=== PATIENT | female | born 1960 | race Caucasian/White ===

== ENCOUNTER → 2016-09-23 | Outpatient (CLI) | payer OTHER ==
[~2016-09-23] MED LIST: BENA25TA6 PO; BIOT2500 PO; CETI-14 PO; KRIL1CAP9 PO; MAGN1TAB14 PO; OXYC1TAB63 PO
[2016-09-23 11:59] LABS: APTT (PATIENT) 25.3 SEC (24.3-30.1); PROTHROMBIN TIME - PATIENT 10.5 SEC (9.8-11.6)
[2016-09-23 12:05] LABS: AUTOMATED NEUTROPHIL # 4.2 TH/MM3 (1.8-7.7); BASOPHIL % 0.6 % (0.0-2.0); EOSINOPHIL # 0.3 TH/MM3 (0-0.4); EOSINOPHIL % 5.4 % (0.0-4.0); HEMATOCRIT 41.1 % (35.0-46.0); HEMO FLAGS DIFF FINAL; LYMPHOCYTE # 1.4 TH/MM3 (1.0-4.8); MEAN CELL VOLUME 84.1 FL (80.0-100.0); MEAN CORPUSCULAR HEMOGLOBIN 26.8 PG (27.0-34.0); MEAN CORPUSCULAR HGB CONC 31.8 % (32.0-36.0); MONO % 7.9 % (0.0-8.0); NEUT % 65.1 % (16.0-70.0); PLATELET COUNT 231 TH/MM3 (150-450); RED BLOOD COUNT 4.88 MIL/MM3 (4.00-5.30); RED CELL DISTRIBUTION WIDTH 13.4 % (11.6-17.2); WHITE BLOOD COUNT 6.5 TH/MM3 (4.0-11.0)
[2016-09-23 12:10] LABS: ANION GAP 4 MEQ/L (5-15); AST (GOT) 14 U/L (15-37); BLOOD UREA NITROGEN 22 MG/DL (7-18); CHLORIDE 105 MEQ/L (98-107); GLOMERULAR FILTRATION RATE 78 ML/MIN (>89); GLUCOSE,FASTING 89 MG/DL (74-99); POTASSIUM 4.3 MEQ/L (3.5-5.1); SODIUM (NA) 140 MEQ/L (136-145)
[2016-09-23 12:11] LABS: ALT (GPT) 26 U/L (10-53)
[2016-09-23 12:14] LABS: ALKALINE PHOSPHATASE 71 U/L (45-117); TOTAL BILIRUBIN ADULT 0.4 MG/DL (0.2-1.0)
--- NOTE | 2016-09-23 13:55 | RADRPT ---
EXAM DATE/TIME: 09/23/2016 12:25 [place] COMPARISON: No previous studies available for comparison. INDICATIONS : Evaluate for pneumonia, pneumothorax, or communicable disease. Pre op for abdominal surgery. MEDICAL HISTORY : None. SURGICAL HISTORY : None. ENCOUNTER: Initial ACUITY: 1 day PAIN SCORE: 0/10 LOCATION: chest FINDINGS: PA and lateral views of the chest demonstrate a normal-sized cardiac silhouette. There is no effusion , consolidation, or pneumothorax. The bones and soft tissues demonstrate no acute abnormality. There are degenerative changes of the thoracic spine. CONCLUSION: No acute cardiopulmonary abnormality is identified. Neftaly Rivas MD on September 23, 2016 at 13:50 Board Certified Radiologist. This report was verified electronically.
--- NOTE | 2016-09-24 13:24 | EKG ---
Date Performed: 09/23/2016 Time Performed: 11:33:43 PTAGE: 56 years EKG: Sinus rhythm NORMAL ECG NO PREVIOUS TRACING DOCTOR: Erick Arzola Interpretating Date/Time 09/24/2016 13:22:27
== END ==
LOC: CPRE 10:59
PROVIDERS: ATTEND Obstetrics & Gynecology Gynecologic Oncology
DX: Z01.810 Encounter for preprocedural cardiovascular examination (principal); Z01.811 Encounter for preprocedural respiratory examination; Z01.812 Encounter for preprocedural laboratory examination; C54.1 Malignant neoplasm of endometrium
CPT/HCPCS: 36415; 71020; 80053; 85025; 85610; 85730; 93005

== ENCOUNTER 2016-09-30 08:42 | Observation (INO) | payer OTHER ==
[~2016-09-30] VITALS: Ht 170.2 cm; Wt 75.8 kg
[~2016-09-30 08:42] MED LIST changes: -OXYC1TAB63 PO
[2016-09-30] MEDS ORDERED: LACTATED RINGER'S 1000 ML IV PRN (09:15)
[2016-09-30] MEDS ORDERED: SODIUM CHLORID 0.9% 500 ML IV PRN (09:15)
[2016-09-30] MEDS ORDERED: CHLORHEXIDINE GLUCONATE 2 % 1 PACK (2 CLOTHS) TOPICAL PRN (09:15)
[2016-09-30] MEDS ORDERED: INSULIN HUMAN REGULAR 1,000 UNITS/10 ML VIAL SQ PRN (09:15)
[2016-09-30] MEDS ORDERED: METOPROLOL TARTRATE 25 MG TAB PO PRN (09:15)
[2016-09-30] MEDS ORDERED: POVIDONE IODINE 5% (ANTISEPSIS KIT) 4 APPLICATIONS EACH NARE PRN (09:15)
[2016-09-30 09:24] VITALS: BP 132/56; PULSE 58; RESP 18; TEMP 98.7; O2SAT 100
[2016-09-30] MEDS ORDERED: HEPARIN SODIUM - SQ 10,000 UNITS/ML VIAL SQ ONE (09:30)
[2016-09-30] MEDS ORDERED: ceFAZolin 1,000 MG/NS 100 ML IV SCH ×2 (09:30)
[2016-09-30] MEDS ORDERED: APREPITANT 40 MG CAP ONE (10:44)
[2016-09-30] MEDS ORDERED: ARTIFICIAL TEARS OPTH OINT 3.5 APPLIC/3.5 GM TUBO ONE (11:24)
[2016-09-30] MEDS ORDERED: HYDROmorphone HCL PF 2 MG/ML VIAL ONE (11:24)
[2016-09-30] MEDS ORDERED: MIDAZOLAM HCL 2 MG/2 ML VIAL ONE (11:24)
[2016-09-30] MEDS ORDERED: ACETAMINOPHEN 1000 MG/100 ML VIAL IV ONE (11:24)
[2016-09-30] MEDS ORDERED: fentaNYL CITRATE 250 MCG/5 ML AMP ONE ×2 (11:24→15:24)
[2016-09-30] MEDS ORDERED: DEXAMETHASONE SOD PHOS 4 MG/ML VIAL ONE (11:25)
[2016-09-30] MEDS ORDERED: FAMOTIDINE 20 MG/2 ML VIAL ONE (11:25)
[2016-09-30] MEDS ORDERED: SUGAMMADEX SODIUM 200 MG/2 ML VIAL IV PUSH ONE ×2 (11:39)
[2016-09-30] MEDS ORDERED: ePHEDrine/NS 25 MG/5 ML SYR IV ONE (12:00)
[2016-09-30] MEDS ORDERED: NORMOSOL R INJ 1,000 ML IV ONE (12:00)
[2016-09-30] MEDS ORDERED: ONDANSETRON HCL 4 MG/2 ML VIAL IV PUSH ONE (12:00)
[2016-09-30] MEDS ORDERED: KETOROLAC TROMETHAMINE 60 MG/2 ML (IM) VIAL IM ONE (12:00)
[2016-09-30] MEDS ORDERED: PROPOFOL 200 MG/20 ML AMP IV ONE (12:00)
[2016-09-30] MEDS ORDERED: LIDOCAINE 1%/EPINEPHrine 1:100,000 SOLN 30 ML VIAL INFIL ONE (12:33)
[2016-09-30] MEDS ORDERED: METHYLENE BLUE 10 MG/ML VIAL OTHER ONE (13:55)
[2016-09-30] MEDS ORDERED: ceFAZolin INJ 1,000 MG VIAL IV ONE (14:10)
[2016-09-30] MEDS ORDERED: SODIUM CHLORIDE 0.9% FLUSH 10 ML FLUSH IV FLUSH PRN (15:15)
[2016-09-30] MEDS ORDERED: diphenhydrAMINE HCL 25 MG CAP PO PRN ×2 (15:15→16:30)
[2016-09-30] MEDS ORDERED: [UNRECOGNIZED DRUG - REMARK] PO PRN (15:15)
[2016-09-30] MEDS ORDERED: LORazepam 0.5 MG TAB PO PRN (15:15)
[2016-09-30] MEDS: D5-1/2 NS + KCL 20 MEQ INJ 1,000 ML IV SCH ×2 (15:52→21:54)
[2016-09-30] MEDS ORDERED: DO NOT ADM ANY ANTICOAGULANT DRUGS PRN (16:15)
[2016-09-30 18:00] VITALS: BP 108/58; PULSE 82; RESP 20; TEMP 97.9; O2SAT 98
[2016-09-30] MEDS: ONDANSETRON HCL 4 MG/2 ML VIAL IVP PRN (18:32)
[2016-09-30 20:00] VITALS: BP 121/59; PULSE 70; RESP 16; TEMP 97.6; O2SAT 98
[2016-09-30] MEDS: SODIUM CHLORIDE 0.9% FLUSH 10 ML FLUSH IV FLUSH SCH (21:00)
[2016-09-30] MEDS: KETOROLAC TROMETHAMINE 30 MG/ML (IVP) VIAL IVP SCH (21:52)
[2016-09-30] MEDS ORDERED: METOCLOPRAMIDE HCL 10 MG/2 ML VIAL IV ONE (23:00)
[2016-10-01] VITALS: BP 136/62; PULSE 70; RESP 16; TEMP 97.6; O2SAT 98
[2016-10-01] MEDS ORDERED: METOCLOPRAMIDE HCL 10 MG/2 ML VIAL IV PRN (00:15)
[2016-10-01] MEDS: ONDANSETRON HCL 4 MG/2 ML VIAL IVP PRN (00:28)
[2016-10-01] MEDS: oxyCODONE/ACETAMINOPHEN 5 MG/325 MG TAB PO PRN ×4 (00:33→12:47)
[2016-10-01] MEDS: KETOROLAC TROMETHAMINE 30 MG/ML (IVP) VIAL IVP SCH ×2 (03:44→08:57)
[2016-10-01 04:00] VITALS: BP 123/55; PULSE 70; RESP 16; TEMP 96.9; O2SAT 100
[2016-10-01 08:00] VITALS: BP 111/55; PULSE 68; RESP 17; TEMP 97.8; O2SAT 98
[2016-10-01] MEDS ORDERED: OXYC1TAB63 PO (08:58)
[2016-10-01] MEDS ORDERED: CETIRIZINE HCL PO SCH (09:00)
[2016-10-01] MEDS: SODIUM CHLORIDE 0.9% FLUSH 10 ML FLUSH IV FLUSH SCH (09:00)
[2016-10-01] MEDS ORDERED: CETIRIZINE HCL 10 MG TAB PO SCH (09:00)
[2016-10-01 09:53] LABS: AUTOMATED NEUTROPHIL # 8.8 TH/MM3 (1.8-7.7); BASOPHIL % 0.2 % (0.0-2.0); EOSINOPHIL % 0.4 % (0.0-4.0); HEMATOCRIT 34.2 % (35.0-46.0); HEMO FLAGS DIFF FINAL; LYMPHOCYTE # 1.7 TH/MM3 (1.0-4.8); MEAN CELL VOLUME 84.2 FL (80.0-100.0); MEAN CORPUSCULAR HEMOGLOBIN 27.2 PG (27.0-34.0); MEAN CORPUSCULAR HGB CONC 32.3 % (32.0-36.0); NEUT % 78.4 % (16.0-70.0); PLATELET COUNT 192 TH/MM3 (150-450); RED BLOOD COUNT 4.06 MIL/MM3 (4.00-5.30); RED CELL DISTRIBUTION WIDTH 13.8 % (11.6-17.2); WHITE BLOOD COUNT 11.3 TH/MM3 (4.0-11.0)
[2016-10-01 10:15] LABS: BICARBONATE 26.4 MEQ/L (21.0-32.0); POTASSIUM 4.2 MEQ/L (3.5-5.1)
[2016-10-01 12:00] VITALS: BP 100/55; PULSE 60; RESP 17; TEMP 97.8; O2SAT 98
--- NOTE | 2016-10-01 14:42 | MP ---
cc: MARVIN MCCLOUD MD,CRISPIN MENJIVAR,SONIA Quiñones M.D. DATE OF SURGERY: 09/30/2016 PREOPERATIVE DIAGNOSIS Complex atypical endometrial hyperplasia/grade 1 endometrial adenocarcinoma. POSTOPERATIVE DIAGNOSIS Complex atypical endometrial hyperplasia/grade 1 endometrial adenocarcinoma. PROCEDURE Robotic-assisted laparoscopic hysterectomy, bilateral salpingo-oophorectomy. 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 ESTIMATED BLOOD LOSS 200 cc. IV FLUIDS 1100 cc. URINE OUTPUT 200 cc. HISTORY A 56-year-old female with intermittent bleeding, uncertain menopausal status, sought further evaluation. Endometrium of the uterus was not overtly prominent at 5 mm. Ovaries appeared normal. Due to persistent bleeding sampling was obtained. Upon endometrial sampling complex atypical hyperplasia was detected with an area that appeared suspicious for grade 1 endometrial adenocarcinoma. Outside slides were read by the [place] pathologist who concurred with these findings. She was counseled regarding options and was in favor of surgical management and in favor of minimally invasive techniques. She is seen again in the pre-op holding area where these findings are again reviewed. Questions were answered. Plan of care is outlined and she wishes to move forward with surgical management. FINDINGS The uterus sounded to 7.5 cm. Grossly the uterus, tubes and ovaries appear normal. There were no appreciably enlarged pelvic or paraaortic lymph nodes. The peritoneal surfaces were normal with no peritoneal implants or other abnormality detected. The pathology from the uterus showed no obvious residual tumor. There was certainly no detectable invasion. No other suspicious findings. DETAILS OF PROCEDURE The patient was taken to the operating room and placed in the dorsal lithotomy position. After general endotracheal anesthesia was administered a timeout was undertaken. She was identified by sight recognition and hospital ID bracelet and the proposed procedure was reviewed and confirmed. She was carefully positioned in padded Joni stirrups. Her arms were padded and secured to the sides. She was further secured to the operating table with eggcrate padding and tape in across chest over the shoulder fashion. All sites were noted to be properly aligned with no malalignments or pressure points. She was prepped in sterile fashion, draped below the waist, placed in high lithotomy position. The cervix was grasped, uterine cavity was sounded. The cervix was dilated and a standard VCare manipulator was inserted and secured in the usual fashion. A Mittal catheter was placed in the bladder. She was returned to low lithotomy position. A change of sterile gloves was undertaken. We confirmed that an orogastric tube was in the stomach on suction. With manual elevation of the abdominal wall with direct laparoscopic visualization a 5 mm cannula was placed in the left upper quadrant. Carbon dioxide gas was insufflated and an atraumatic entry was confirmed. A 12 mm cannula was placed in the midline above the umbilicus, 8 mm cannulas in the right upper abdomen and left lateral abdomen. The original 5 was exchanged for an 8 mm cannula. She placed in steep Trendelenburg position. Peritoneal washings were obtained for cytology. The anatomy was surveyed with findings as described above. Three Ray-Jv sponges were placed at the root of the small bowel mesentery as the small bowel was folded back into the abdomen. The robotic system was brought into the operative field and attached in the usual fashion. Monopolar scissors, fenestrated bipolar forceps and ProGrasp manipulators were placed in arms #1, 2 and 3 respectively and I took my place at the surgeon's console. The right round ligament was cauterized and transected. The anterior and posterior leafs of the broad ligament were opened. The right ureter was identified. The right infundibulopelvic ligament was isolated to the level of the pelvic brim where it was cauterized and transected. The posterior peritoneum was opened along the right side of the uterus and cervix. The right vesicouterine peritoneum was dissected off the lower uterine segment and cervix. The right uterine vessels were skeletonized, cauterized and transected as were the cardinal, paracervical and uterosacral ligaments isolated, cauterized and transected. Attention was directed toward the left side. The left round ligament was isolated, cauterized and transected. The anterior and posterior leafs of the broad ligament were opened. Adhesions were taken down to mobilize the colon. The left ureter was identified. The left infundibulopelvic ligament was isolated. The intervening peritoneum was opened. The infundibulopelvic ligament was cauterized at the level of the pelvic brim and transected. The posterior peritoneum was opened along the left side of the uterus and cervix. The left vesicouterine peritoneum was dissected off the lower uterine segment and cervix. The left uterine vessels were skeletonized, cauterized and transected as were the cardinal, paracervical and uterosacral ligaments which were isolated, cauterized and transected. Circumferential colpotomy was performed the cervix from the upper vagina. The specimen was withdrawn transvaginally which included uterus, cervix, tubes and ovaries and a pneumo-occluder balloon was placed in the vagina to maintain pneumoperitoneum. Instruments 1 and 3 were exchanged for needle drivers as a 0 Vicryl suture was introduced. The cuff was closed starting at the left corner full-thickness closure incorporating the posterior uterosacral ligament, posterior peritoneum and tied via instrument tie. Closure was held on countertraction as a running full-thickness continuous closure was carried across the vaginal apex to the contralateral corner where it was similarly affixed, secured and tied. The needle was cut and removed. The pelvis was irrigated. Small bleeders were rendered hemostatic with bipolar cautery. The integrity of the bladder was confirmed by filling the bladder with saline dyed with methylene blue. It distended nicely under pressure. No areas of blue to suggest thinning of the bladder, no extravasation of dye. Good margin between the vaginal cuff suture line and the edge of the bladder. Good peristalsis of ureters bilaterally and the bladder was drained. Hemostatic agent was placed across the vaginal cuff. Pathology came back showing no obvious residual tumor. Therefore it was felt that all reasonable surgical objectives had been completed. The robotic instruments were removed. The robotic system was disengaged from the operative field. I reentered the bedside under sterile condition. We closed the 12 mm fascial defect with interrupted 0 Vicryl sutures using a needle pass apparatus under laparoscopic visualization. They were tied securely rendering the fascia completely airtight and hemostatic. Prior to closure it should be noted that each of the three Ray-Jv sponges that had been placed in the peritoneal cavity were removed through the 12 mm cannula. Each were removed and inspected and noted to be removed in their entirety. Visual inspection confirmed no remaining foreign objects in the peritoneal cavity and preliminary counts were correct. The remaining cannulas were withdrawn. Carbon dioxide gas was removed from the peritoneal cavity. 3-0 Vicryl subcutaneous, 3-0 Vicryl subcuticular and Steri-Strips were used to close these incisions. She was returned to dorsal lithotomy position. Pelvic exam confirmed the vaginal cuff was well-supported and hemostatic. There were no remaining foreign objects in the vagina and final counts were correct. She was returned to dorsal supine position and was pending reversal of anesthesia when I left the operating room to precede her to the post-anesthesia care unit and to speak to her who was waiting in the surgery waiting area. MD SHERRY Howard/NICOLLE /10:26 AM /2:27 PM
--- NOTE | 2016-10-03 19:01 | MD ---
cc: MARVIN MCCLOUD MD,CRISPIN MENJIVAR,SONIA Quiñones M.D. ADMISSION DATE: 09/30/2016 DISCHARGE DATE: 10/01/2016 PROCEDURE PERFORMED: 09/30/2016: robotic-assisted laparoscopic hysterectomy, bilateral salpingo-oophorectomy. DIAGNOSIS Complex atypical hyperplasia / endometrial cancer. HOSPITAL COURSE: She did well during early hospitalization and tolerated oral intake. Mittal catheter out voiding satisfactory. She has been out of bed. Hemodynamically stable. Pain adequately controlled. OBJECTIVE: In's and out's are 2619 / 1600. Labs pending at time of this dictation. PHYSICAL EXAMINATION: VITAL SIGNS: Afebrile, pulse 70-82, respirations 16-20, blood pressure 108-136 / 57-62, O2 saturations greater than or equal to 98% GENERAL: She is alert and oriented x3. LUNGS: Clear. CARDIOVASCULAR: Regular rate and rhythm. SKIN: Incisions clean and dry. ABDOMEN: Soft. 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 EXTREMITIES: Nontender. ASSESSMENT: Postop day #1 doing well. FINDINGS: Preliminary pathology at the time of surgery reviewed. Activity restrictions discussed. Questions were answered. She expressed good understanding and is doing well, and I anticipate she will meet criteria for discharge to home. PLAN: Therefore, anticipate discharge to home. She is to call our office to ensure she has followup scheduled in two weeks. She is to resume prior medications. She has a prescription for Percocet and our office number is available should she have any questions or problems between now and the time of scheduled followup. MD SHERRY Howard/JOO /9:06 AM /7:00 PM
== END 2016-10-01 13:31 | disposition home or self-care (01) ==
LOC: HSDC 08:42 → HSDI 15:05 → HOCB 17:37
PROVIDERS: ADMIT Obstetrics & Gynecology Gynecologic Oncology; ATTEND Obstetrics & Gynecology Gynecologic Oncology
PROC: 0UTC7ZZ Resection of Cervix, Via Natural or Artificial Opening (ICD-10-PCS; 2016-09-30)
PROC: 0UT2FZZ Resection of Bilateral Ovaries, Via Natural or Artificial Opening With Percutaneous Endoscopic Assistance (ICD-10-PCS; 2016-09-30)
PROC: 0UT7FZZ Resection of Bilateral Fallopian Tubes, Via Natural or Artificial Opening With Percutaneous Endoscopic Assistance (ICD-10-PCS; 2016-09-30)
PROC: 8E0W8CZ Robotic Assisted Procedure of Trunk Region, Via Natural or Artificial Opening Endoscopic (ICD-10-PCS; 2016-09-30)
PROC: 0UT9FZZ Resection of Uterus, Via Natural or Artificial Opening With Percutaneous Endoscopic Assistance (ICD-10-PCS; principal; 2016-09-30 11:44)
DX: N85.02 Endometrial intraepithelial neoplasia [EIN] (principal); N80.0 Endometriosis of uterus; D25.1 Intramural leiomyoma of uterus; N95.0 Postmenopausal bleeding
CPT/HCPCS: 00840; 58552; 80048; 85025; 86850; 86900; 86901; 88307; 88331; 94150; G0378; J0131; J0690; J1100; J1170; J1644; J1885; J2250; J2405; J2765; J3010; J3480; J7120; J8501; S2900; 88309